=== PATIENT | male | born 1980 | race Caucasian/White ===

== ENCOUNTER 2017-09-17 11:22 | Emergency (ER) | payer BC | END 2017-09-17 12:24 | disposition left against medical advice (07) | LOC: DL.ED 11:22 | DX: Z53.21 Procedure and treatment not carried out due to patient leaving prior to being seen by health care provider (principal) ==

== ENCOUNTER 2017-10-10 23:23 | Emergency (ER) | payer BC ==
[2017-10-10] MEDS ORDERED: Acetaminophen/HYDROcodone 325-10 MG Tab PO ONE (23:24)
[2017-10-10 23:35] VITALS: BP 140/93
[2017-10-10] MEDS ORDERED: Clindamycin HCl 150 MG Cap PO ONE (23:42)
--- NOTE | 2017-10-10 23:45 | EDM.PDOC ---
ED HPI GENERAL MEDICAL PROBLEM - General Chief Complaint: ENT Problem Stated Complaint: TOOTH ACHE [id number] Time Seen by Provider: 10/10/17 23:42 Source of Information: Reports: Patient History Limitations: Reports: No Limitations - History of Present Illness INITIAL COMMENTS - FREE TEXT/NARRATIVE: recent dental work. Left Upper Tooth/Teeth Pain Score (Numeric/FACES): 10 - Related Data Allergies Allergy/AdvReac Type Severity Reaction Status Date / Time No Known Allergies Allergy Verified 11/03/16 06:47 Home Meds: Home Meds ALPRAZolam [Alprazolam] 0.25 mg PO TID PRN 10/10/17 [History] Glimepiride [Glimepiride] 1 mg PO DAILY 10/10/17 [History] Levothyroxine [Synthroid] 50 mcg PO ACBREAKFAST 10/10/17 [History] Sertraline [Zoloft] 50 mg PO DAILY 10/10/17 [History] metFORMIN [Glucophage] 1,000 mg PO DAILY 10/10/17 [History] Past Medical History - Past Health History Medical/Surgical History: Denies Medical/Surgical History Musculoskeletal History: Reports: None Other Musculoskeletal History: Bone spur left foot Neurological History: Reports: None Psychiatric History: Reports: Anxiety Endocrine/Metabolic History: Reports: Diabetes, Type II, Hypothyroidism Dermatologic History: Reports: None - Infectious Disease History Infectious Disease History: Reports: Chicken Pox - Past Surgical History Musculoskeletal Surgical History: Reports: Other (See Below) Other Musculoskeletal Surgeries/Procedures:: bone spur on toe Social & Family History - Family History Family Medical History: Noncontributory Cardiac: Reports: Hypertension Other Cardiac Family History: Grandmother - Tobacco Use Smoking Status *Q: Current Every Day Smoker Years of Tobacco use: 15 Packs/Tins Daily: 1 Used Tobacco, but Quit: No Second Hand Smoke Exposure: No - Caffeine Use Caffeine Use: Reports: None - Recreational Drug Use Recreational Drug Use: No ED ROS ENT - Review of Systems Review Of Systems: ROS reveals no pertinent complaints other than HPI. ED EXAM, ENT - Physical Exam Exam: See Below Exam Limited By: No Limitations General Appearance: Alert, WD/WN, Mild Distress, Moderate Distress, Other ( tooth pain) Ears: Hearing Grossly Normal Mouth/Throat: Dental Abcess, Dental Pain, Dental Tenderness Head: Atraumatic Neck: Non-Tender, Full Range of Motion Respiratory/Chest: No Respiratory Distress Cardiovascular: Regular Rate, Rhythm GI/Abdominal: Soft, Non-Tender Neurological: Alert, Oriented, Normal Cognition, Normal Gait, No Motor/Sensory Deficits Psychiatric: Tearful Skin: Warm, Dry, Normal Color Lymphatic: No Adenopathy Course - Vital Signs Last Recorded V/S: Last Vital Signs Temp 36.0 C 10/10/17 23:32 Pulse 81 10/10/17 23:32 Resp 16 10/10/17 23:32 BP 140/93 H 10/10/17 23:32 Pulse Ox 99 10/10/17 23:32 - Orders/Labs/Meds Orders: Active Orders 24 hr Category Date Time Status Clindamycin HCl [Cleocin] Med 10/10/17 23:42 Once 150 mg PO ONETIME ONE Medication Orders Clindamycin HCl (Cleocin) 150 mg PO ONETIME ONE Stop: 10/10/17 23:43 Meds: Medications Generic Name Dose Route Start Last Admin Trade Name Freq PRN Reason Stop Dose Admin Clindamycin HCl 150 mg 10/10/17 23:42 Cleocin PO 10/10/17 23:43 ONETIME ONE Departure - Departure Time of Disposition: 23:43 Disposition: Home, Self-Care 01 Condition: Good Clinical Impression: Dental caries extending into dentin - Discharge Information Instructions: Dental Abscess, [id number] Additional Instructions: 1) avoid solid foods 2) see dentist 3) recheck as needed rx given; clindamycin 150mg qid x 40 vicodin 5/325mg bid prn x 12 - My Orders Last 24 Hours: My Active Orders 10/10/17 23:42 Clindamycin HCl [Cleocin] 150 mg PO ONETIME ONE - Assessment/Plan Last 24 Hours: My Active Orders 10/10/17 23:42 Clindamycin HCl [Cleocin] 150 mg PO ONETIME ONE
[2017-10-10] MEDS ORDERED: Acetaminophen/HYDROcodone 325-10 MG Tab ONE (23:46)
== END 2017-10-10 23:54 | disposition home or self-care (01) ==
LOC: DL.ED 23:23
DX: K02.9 Dental caries, unspecified (principal); F41.9 Anxiety disorder, unspecified; E11.9 Type 2 diabetes mellitus without complications; E03.9 Hypothyroidism, unspecified; F17.210 Nicotine dependence, cigarettes, uncomplicated; Z79.84 Long term (current) use of oral hypoglycemic drugs; Z79.899 Other long term (current) drug therapy
CPT/HCPCS: 99282; A9270

== ENCOUNTER 2022-10-06 21:43 | Emergency (ER) | payer OTHER ==
[2022-10-06 22:21] VITALS: BP 108/69; PULSE 99
[2022-10-06 22:37] LABS: PTT,PARTIAL THROMBOPLSTIN TIME 21.2 SEC (22.0-34.0)
[2022-10-06 22:41] LABS: ANION GAP 10.3 mEq/L (7-13)
[2022-10-06] MEDS: Sodium Chloride 0.9% 1,000 ML IV ONE (22:58)
[2022-10-06] MEDS: Sodium Chloride 0.9% 10 ML Syringe FLUSH PRN (22:58)
[2022-10-06 23:09] LABS: RESPIRATORY SYNCYTIAL VIR NAA NEGATIVE (NEGATIVE)
[2022-10-06 23:18] LABS: CORONAVIRUS COVID-19 NAA POSITIVE (NEGATIVE)
== END 2022-10-06 23:40 | disposition home or self-care (01) ==
LOC: DL.ED 21:43
DX: U07.1 COVID-19 (principal); R55 Syncope and collapse; E11.9 Type 2 diabetes mellitus without complications; Z79.899 Other long term (current) drug therapy
CPT/HCPCS: 0241U; 36415; 80053; 83605; 83880; 84484; 85025; 85610; 85730; 87040; 93005; 99284; J3490; J7030